=== PATIENT | male | born 1990 | race Two or more races ===

== ENCOUNTER 2020-07-25 08:35 | Emergency (ER) | payer OTHER ==
[~2020-07-25] VITALS: Ht 170.2 cm; Wt 72.6 kg
--- NOTE | 2020-07-25 09:00 | NUR ---
The patient is [facility] [employer] for medical clearance. ran into a wall s/p hearing voices. The patient denies SI. forehead lac noted. pt states momentarily "black out". Rates pain 4/10. In room air and denies SOB. Respiration regular and unlabored. Warm blanket provided. Will continue to monitor the patient.
--- NOTE | 2020-07-25 09:10 | NUR ---
Denies auditory or visual hallucinations at this time.
--- NOTE | 2020-07-25 09:20 | NUR ---
pt to radiology for head ct scan via [place]
[2020-07-25] MEDS ORDERED: TDAP [DIPH/PERTUSSIS/TET] 0.5 ML VIAL IM ONE ×3 (09:21→09:30)
--- NOTE | 2020-07-25 10:18 | NUR ---
The patient is alert and oriented x3. Patient discharged with officer and the patient in stable condition. Written and verbal after care instructions given. Patient and the officers verbalized understanding of instruction.
[2020-07-25 10:19] VITALS: BP 113/77
== END 2020-07-25 10:19 ==
LOC: ER 08:42
DX: S01.81XA Laceration without foreign body of other part of head, initial encounter (principal); R51.9 Headache, unspecified; F20.9 Schizophrenia, unspecified; F31.9 Bipolar disorder, unspecified; J45.909 Unspecified asthma, uncomplicated; X58.XXXA Exposure to other specified factors, initial encounter; Y93.89 Activity, other specified; Y92.89 Other specified places as the place of occurrence of the external cause; Y99.8 Other external cause status
CPT/HCPCS: 70450-TC; 90715

== ENCOUNTER 2021-10-09 16:12 | Emergency (ER) | payer SELFPAY ==
[~2021-10-09] VITALS: Ht 167.6 cm; Wt 73.5 kg
[2021-10-09 16:38] VITALS: BP 147/101
--- NOTE | 2021-10-09 16:52 | NUR ---
PATIENT LEFT AFTER TRIAGE. PATIENT NOT SEEN BY
== END 2021-10-09 16:57 | disposition left against medical advice (07) ==
LOC: ER 16:13
DX: Z53.21 Procedure and treatment not carried out due to patient leaving prior to being seen by health care provider (principal); R11.10 Vomiting, unspecified; J45.909 Unspecified asthma, uncomplicated